=== PATIENT | female | born 1990 | race Caucasian/White ===

== ENCOUNTER 2019-01-29 01:18 | Emergency (ER) | payer BC ==
--- NOTE | 2019-01-29 01:49 | EDPHY ---
H & P Stated Complaint: etoh, vomiting Time Seen by Provider: 01/29/19 01:35 HPI/ROS: Chief Complaint: Alcohol intoxication, vomiting HPI: 28-year-old woman brought in by friends for alcohol intoxication. Patient was out drinking approximate mi. Had multiple shots. Patient began vomiting. She isn't able to walk around. Patient admits to drinking multiple alcoholic beverages. Did not fall. Did not hit her head. She is now awake alert and answering questions. ROS: 10 systems were reviewed and were negative except those elements noted in the HPI. PMH: Asthma Social History: No smoking, occasional alcohol, no recreational drug use Family History: non-contributory Physical Exam: Gen: Awake, Alert, No Distress, slurred speech, smells of alcohol and emesis HEENT: Nose: no rhinorrhea Eyes: PERRLA, EOMI Mouth: Moist mucosa Neck: Supple, no JVD Chest: nontender, lungs clear to auscultation Heart: S1, S2 normal, no murmur Abd: Soft, non-tender, no guarding Back: no CVA tenderness, no midline tenderness Ext: no edema, non-tender Skin: no rash Neuro: CN II-XII intact, Sensation grossly intact, Strength 5/5 in bilateral upper and lower extremities - Personal History LMP (Females 10-55): 1-7 Days Ago Current Tetanus Diphtheria and Acellular Pertussis (TDAP): Yes - Medical/Surgical History Hx Asthma: Yes Hx Chronic Respiratory Disease: No Hx Diabetes: No Hx Cardiac Disease: No Hx Renal Disease: No Hx Cirrhosis: No Hx Alcoholism: No Hx HIV/AIDS: No Hx Splenectomy or Spleen Trauma: No Other PMH: denies - Social History Smoking Status: Never smoked Constitutional: Initial Vital Signs Temperature (C) 36.7 C 01/29/19 01:22 Heart Rate 81 01/29/19 01:22 Respiratory Rate 16 01/29/19 01:22 Blood Pressure 118/70 01/29/19 01:22 O2 Sat (%) 98 01/29/19 01:22 O2 Delivery Mode Room Air Allergies/Adverse Reactions: No Known Allergies Allergy (Unverified 01/29/19 01:21) Home Medications: Medication Instructions Recorded Albuterol 01/29/19 Medical Decision Making ED Course/Re-evaluation: Patient is now awake and appropriate. Ambulating unassisted to the bathroom. No current complaints. Patient is tolerating oral fluids. Patient is ready for discharge with sober ride. Departure - Departure Disposition: Home, Routine, Self-Care Clinical Impression: Alcoholic intoxication Condition: Good Instructions: Alcohol Intoxication (ED) Referrals: NONE *PRIMARY CARE P,. [Primary Care Provider] - As per Instructions
[2019-01-29 03:40] VITALS: BP 123/76
== END 2019-01-29 03:35 | disposition home or self-care (01) ==
DX: F10.920 Alcohol use, unspecified with intoxication, uncomplicated (principal)